=== PATIENT | female | born 1960 | race Two or more races ===

== ENCOUNTER 2017-01-04 11:51 | Day surgery (SDC) | payer BC ==
[~2017-01-04] VITALS: Ht 157.5 cm; Wt 52.8 kg
[2017-01-04 13:05] VITALS: Ht 157.5 cm; Wt 52.8 kg
[2017-01-04] MEDS ORDERED: BIOT1CAP3 PO (13:21)
[2017-01-04] MEDS ORDERED: MVI DAILY (13:21)
[2017-01-04] MEDS ORDERED: VIT D WEEKLY (13:21)
[2017-01-04 13:33] VITALS: BP 115/74; PULSE 73; RESP 18
[2017-01-04] MEDS ORDERED: LIDOCAINE 2% (SDV) 5 ML INJ ONE (14:51)
[2017-01-04] MEDS ORDERED: PROPOFOL 40 ML ONE (14:51)
[2017-01-04 15:15] VITALS: BP 117/70; PULSE 76; RESP 18
--- NOTE | 2017-01-04 15:31 | GILP ---
DATE OF PROCEDURE: 01/04/2017 PROCEDURE: Colonoscopy to cecum. PREMEDICATION: Monitored anesthesia care by anesthesiologist. SURGEON: Yaa Mcmanus MD. INSTRUMENT USED: Olympus colonoscope. PREPARATION: Adequate. TECHNIQUE: After informed consent, with the patient/relatives understanding the procedure, its indic ations potential risks and complications, including but not limited to: allergic reaction, bleeding, perforation, infection, missed lesions and after all pertinent questions were answered to the patie nt's satisfaction, the patient/relatives signed the witnessed informed consent. Following this, premedication was administered slowly IV push by under careful cardiovascular and re spiratory monitoring with pulse oximetry, automatic blood pressure and cardiac monitor technician. Once the sedativ e effect was achieved, the patient was placed in the left lateral decubitus position, digital rectal examination was performed. The colonoscope was then introduced and advanced under visual control th roughout all segments of the colon including: the rectum, sigmoid, descending colon, splenic flexure , transverse colon, hepatic flexure, ascending colon and finally reaching the cecum which was clearl y identified by transillumination, finger indentation and the ileocecal valve. Careful examination o f the mucosa of the lower gastrointestinal tract both on insertion as well as withdrawal of the inst rument disclosed the following findings: Rectal Examination: Small external hemorrhoids. Colonic Mucosa: The colonic mucosa is unremarkable throughout. The ileocecal valve was clearly iden tified and appears unremarkable. The instrument was then withdrawn, reexamining the mucosal in detail. No additional abnormalities a re noted with the exception of moderate sized internal hemorrhoids. IMPRESSION: Moderate sized internal and small external hemorrhoids. Otherwise normal colonoscopy t o cecum. PLAN: The patient will be advised on a high fiber diet and annual hemoccult stool testing and scree kera colonoscopy in 10 years. Dictated By: YAA MCMANUS MS/YESSI Conf#: [id number] DID#: [id number]
== END 2017-01-04 16:23 | disposition home or self-care (01) ==
LOC: GIL 11:51
PROVIDERS: ATTEND Internal Medicine Gastroenterology
DX: Z12.11 Encounter for screening for malignant neoplasm of colon (principal); K64.4 Residual hemorrhoidal skin tags; K64.8 Other hemorrhoids; Z80.0 Family history of malignant neoplasm of digestive organs
CPT/HCPCS: 45378; Z7610